=== PATIENT | male | born 1930 | race Caucasian/White ===

== ENCOUNTER 2017-06-05 05:29 | Inpatient (IN) | payer MEDICARE ==
--- NOTE | 2017-05-30 13:50 | HP ---
HISTORY OF PRESENT ILLNESS: Mr. Alvarez is an 87-year-old male who was referred by Dr. Hatfield for e valuation of the left motor strip lesion on MR images. Mr. Alvarez has new onset of right hand weakne ss after a cardiac catheterization about 3 months ago. The deficint has been stable since the kim terization. There is loss of fine motor skill in the hand and lack of sensation in the right smalle st digits. There is no change in sensory. After EMG NCV testing was normal and he was sent for MR imaging and mass lesion was discovered. Because of an awake craniotomy was contemplated, he was sen t to our clinic. There have been no new symptoms. PAST MEDICAL HISTORY: Reflux, high cholesterol, coronary artery disease. ALLERGIES: BRILINTA,TRAMADOL, and TEMAZEPAM. PHYSICAL EXAMINATION: NEUROLOGIC: Cranial Nerves: Visual lackey are full to confrontation. Extraocular muscles move the eyes in all directions, primary gaze without nystagmus. The face is sensate and symmetric. Hearin g is normal to finger rub bilaterally. elevates in the midline palate. The tongue protrudes in the midline. Shoulder shrug and neck turn are strong. Cerebellar exam is no truncal ataxia. Ga it and station are normal. Romberg sign is negative. Motor Exam: Lack of extension of the ring an d smallest finger on the right hand intrinsic including interossei weak on the right. No other face , arm, leg weakness seen. Sensory Exam: No loss of dermatomal, no ulnar sensory sensation. Reflex exam normal and no Babinskis. MRI IMAGING: Shows peripheral enhancing mass with a cystic center in the arm area of the left motor strip without much surrounding edema. MRI/MRA of the brain is at [facility]. ASSESSMENT: Frontal mass lesion. PLAN: Patient travels to [place], [place] of times. I suspect neopl asm, but it could be a parasitic lesion. There is a little chance of parasite, I recommend awake cr aniotomy. Informed consent was given. We discussed the indications, risks, benefits, alternatives, and expected results from surgery. The risks discussed included, but were not limited to infection , CSF leak, brain damage, significant loss of neurologic function, seizures, stroke, dependence of n ormal care, cardiopulmonary complications of anesthesia or . Long-term complications discussed included, but were not limited to recurrent and future surgery. He understands the risk and is marie ling to proceed with the surgery. Patient has been started on Keppra 500 mg p.o. b.i.d. for now. [facility]el church will await evaluation from Dr. Coulter, Infectious Disease before proceeding with surgery.
[2017-06-05] MEDS ORDERED: Sodium Chloride 0.9% 20 ML ONE (06:17)
[2017-06-05] MEDS ORDERED: Thrombin 5000 UNITS/5 ML VIAL ONE (06:17)
[2017-06-05] MEDS ORDERED: Bacitracin Zinc Ointment 30 gm TUBE ONE (06:17)
[2017-06-05] MEDS ORDERED: Lidocaine 1% w/Epinephrine 1:200K 30 ML VIAL ONE ×2 (06:17→07:24)
[2017-06-05] MEDS ORDERED: Dexmedetomidine 200 MCG/2 ML VIAL ONE (06:28)
[2017-06-05] MEDS ORDERED: Propofol 500 MG/50 ML VIAL ONE (06:29)
[2017-06-05] MEDS ORDERED: Fentanyl 100 MCG/2 ML VIAL ONE (06:29)
[2017-06-05] MEDS ORDERED: Midazolam HCl 2 mg/2 ml Vial ONE ×2 (06:29→09:08)
[2017-06-05] MEDS ORDERED: Bupivacaine HCl 0.5%/Epinephrine 1:200,000/PF 30 ml Vial ONE ×2 (07:24→08:20)
[2017-06-05] MEDS ORDERED: Lidocaine Viscous Sol 2% 15 ml UD Cup ONE (07:33)
[2017-06-05] MEDS ORDERED: Ondansetron HCl/PF 4 MG/2 ML Vial ONE (07:42)
[2017-06-05] MEDS ORDERED: Dexamethasone 20 MG/5 ML VIAL ONE (07:42)
[2017-06-05] MEDS ORDERED: Propofol 200 MG/20 ML VIAL ONE (07:42)
[2017-06-05] MEDS ORDERED: Acetaminophen 325 MG TAB PO PRN (11:44)
[2017-06-05] MEDS ORDERED: Ondansetron HCl/PF 4 MG/2 ML Vial IVP PRN ×2 (11:44→13:17)
[2017-06-05] MEDS ORDERED: Morphine Sulfate 2 MG/ML SYRINGE SLOW IVP PRN (11:44)
[2017-06-05] MEDS ORDERED: Acetaminophen/Codeine 30-300mg Tablet PO PRN (11:52)
[2017-06-05] MEDS ORDERED: Promethazine HCl 25 MG/ML VIAL IM PRN (13:17)
[2017-06-05] MEDS ORDERED: Promethazine HCl 25 MG/ML VIAL SLOW IVP PRN (13:17)
--- NOTE | 2017-06-05 13:31 | OP ---
DATE OF PROCEDURE: 06/05/2017 SURGEON: Monse Rowe M.D. JOGGER OPERATOR: Danie Toro PA-C. PREOPERATIVE INDICATION: Make diagnosis, prevent neurological deterioration. PREOPERATIVE DIAGNOSES: Left posterior frontal lesion, likely tumor. POSTOPERATIVE DIAGNOSIS: Left posterior frontal lesion, likely tumor. OPERATIVE PROCEDURE: Stereotactic assisted craniotomy, in an awake state with electrocorticography brain mapping, volumetric tumor resection, operating microscope. PREOPERATIVE MEDICATIONS: Ancef 2 grams IV. DRAIN NUMBER: Zero. DRAIN TYPE: None. PROCEDURE IN DETAIL: The patient was brought to the operating room. IV sedation was administered. The patient was positioned supine with his left shoulder bumped and head was anesthetized and then immobilized in [place] bo headholder and the [place] attachment for the operating table was us ed to stabilize the head. Using the preoperative MRI scan, the Al Detal navigation system and navig ation wand with the surface registration, we created stereotactic navigation space around the edita t's head. We verified our registration using surface landmarks and found it to be quite concordance . We then planned our horseshoe-shaped incision on the left side of the scalp. Under the limbs of the planned incision, we infused local anesthetic. The left scalp was sterilely prepped and draped. The patient was kept awake and was not intubated. We opened our incision with a 10 blade knife an d controlled bleeding with bipolar cautery. We used monopolar cautery to dissect to the periosteal layer and we folded our scalp flap inferiorly and held it in place under a fishhook. We used our Rootless navigation system to recenter our craniotomy flap. We placed 2 bur holes laterally and 1 med ially and fashioned a curvilinear craniotomy with a side cutting bit and a foot plate. We stripped the dura off the undersurface of the bone and controlled bleeding with bipolar cautery and a pledget of Gelfoam. We opened the dura laterally and folded it medially and encountered the brain surface. Immediately visible was a fleshy presentation of the tumor on the surface of the brain and the pre central sulcus. We then began our electrocorticography. The patient was emerging from propofol, be mindi speaking with us. We used electrode strip and a phase shift to localize the central sulcus, the precentral gyrus and the post-central gyrus. On the precentral gyrus the tumor, [facility] an area between the proximal leg and the forearm. Between the proximal leg activation are a and the forearm activation area, the hand was a little bit inferior from the surface presentation of the tumor. We elected to enter the precentral sulcus directly on top of the tumor. We brought jamar dye operating microscope into the field. We gently coagulated the rajesh at our entry point and cut thi s sharply. We continued our dissection circumferentially around the lesion and generated a plane po steriorly along the rajesh of the central sulcus medially and laterally as well as anteriorly in the pr ecentral sulcus. We debulked the center of the tumor and took multiple samples for pathology. We f olded the edges then away from normal brain. As we approached the inferior margin of the tumor part of it feathered posteriorly under the post-central gyrus. We stayed intimately associated with the tumor itself and did not violate as best we could tell any normal appearing white matter. With suc tion and irrigation removed the remainder of the abnormal tissue. Our stereotactic navigation wand was brought into the field. We traced the edges of the resection cavity and they fit nicely with th e contours of the tumor on the preoperative image. We irrigated copiously with bacitracin irrigatio n. We controlled bleeding within the depths of our resection cavity with gentle bipolar cautery. W e stimulated the edges of the cavity and found stimulation the right side of the body. We stimulate d the cortical surface again and repeated exactly with the same thresholds the cortical activation o f leg, arm and hand motor pathways. We lined the resection cavity with Surgicel. We harvested a pe ricranial flap to serve as a new dura. The dura itself was tacked medially over craniotomy bone to hold our Gelfoam in place. There was a small bleeding vein and an arachnoid granulation. We took jamar dye operating microscope out of the field. We reattached the skull flap with plates and screws. We closed the scalp in anatomic layers. We applied a sterile dressing and took the patient back out of [facility] head baggage porter. This was a clean case and no contamination.
[2017-06-05 14:43] VITALS: BMI 23.6
[2017-06-05] MEDS ORDERED: methylPREDNISolone 4 mg Tablet PO SCH (15:00)
[2017-06-05] MEDS: Acetaminophen 325 MG TAB PO SCH ×2 (15:15→20:55)
[2017-06-05] MEDS: Sodium Chloride 0.9% 1,000 ML IV SCH (15:24)
--- NOTE | 2017-06-05 18:09 | CON ---
DATE OF CONSULTATION: 06/05/2017 SERVICE: Pulmonary Medicine. REASON FOR CONSULTATION: ICU patient. HISTORY OF PRESENT ILLNESS: Patient is an 87-year-old white male with past medical history significant for a new onset of right hand and wrist weakness. Ultimately, an MRI demonstrated a left-sided brain lesion. He went for an elective craniotomy with excision of this tumor. The results of these are currently pending. He came back to the ICU extubated. He currently has no complaints of fevers, chills, nausea, vomiting, diarrhea or chest discomfort. He has no difficulty with breathing. He was diagnosed with obstructive sleep apnea a couple of weeks ago and was initiated on noninvasive therapy with CPAP at 5 cm of water, roughly 3 days ago. Otherwise, he has no specific complaints. PAST MEDICAL HISTORY: 1. Gastroesophageal reflux disease. 2. Dyslipidemia. 3. Hypertension. 4. Coronary artery disease. 5. Brain tumor. PAST SURGICAL HISTORY: None. FAMILY HISTORY: Noncontributory. SOCIAL HISTORY: Negative for current alcohol, tobacco or illicit drug use. He does not have an extensive history of smoking. He has no exposure to chemical, asbestos or tuberculosis. ALLERGIES: TEMAZEPAM, CANGRELOR and TRAMADOL. MEDICATIONS: List of his inpatient and outpatient medications were reviewed. No updates were made at this time. REVIEW OF SYSTEMS: General, head, ears, eyes, nose, throat, cardiovascular, respiratory, GI, , musculoskeletal, neurologic and skin is negative except as mentioned in the HPI. PHYSICAL EXAMINATION: VITAL SIGNS: Afebrile, pulse 66, blood pressure 147/61, respirations 17 and saturation 92% on room air. GENERAL: The patient is awake and alert, in no apparent distress. LUNGS: Excellent air entry with no prolonged expiratory phase, wheezing, rhonchi or crackles. HEART: Normal rate and regular. ABDOMEN: Soft, nontender and nondistended. Bowel sounds positive. MUSCULOSKELETAL: No cyanosis or clubbing. There is no pitting in the bilateral lower extremities. NEUROLOGIC: Only focal deficit is right hand and wrist weakness, otherwise nonfocal. LABORATORY DATA: WBC 10.0, hemoglobin 13.5 and platelets 241,000. INR 1.0. Basic metabolic profile is unremarkable. IMAGING DATA: MRA of the neck demonstrates limited exam secondary to motion artifact. There is moderate focal stenosis involving the proximal aspect of the cervical right ICA. 1. MRI brain demonstrates heterogeneously enhancing intraaxial mass and the left frontoparietal convexity. 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 2. The brain demonstrates multifocal atherosclerotic irregularity of the [place] unexpected for the patient's age. 3. CT of the chest demonstrates no CT findings to suggest metastatic disease of the chest, abdomen or pelvis. Degenerative changes of the spine. ASSESSMENT: 1. Brain tumor status post craniotomy and excision of left posterior frontal lesion. 2. Obstructive sleep apnea. PLAN: We will continue supportive care and maintain a good blood pressure control based on neurosurgery's parameters. Some of his home blood pressure medicines will be continued. I will continue to follow along while the patient remains in the ICU, but when he goes to the floor, he will not require a pulmonary opinion. TIAGO
[2017-06-05] MEDS: PROVENTIL INHALER 6.7 G (200 INHALATIONS) INH SCH (18:28)
[2017-06-05] MEDS: methylPREDNISolone 4 mg Tablet PO SCH ×2 (18:48→21:03)
[2017-06-05] MEDS: Atorvastatin Calcium 40 MG TAB PO SCH (20:55)
[2017-06-05] MEDS: Tamsulosin HCl 0.4 MG CAP PO SCH (20:56)
[2017-06-05] MEDS ORDERED: levETIRAcetam 500 MG TAB PO SCH (21:00)
[2017-06-05] MEDS ORDERED: Calcium Carbonate 500 MG ChewTAB PO PRN (22:15)
[2017-06-05] MEDS: Labetalol HCl 100 MG/20 ML VIAL SLOW IVP PRN (23:21)
[2017-06-06] MEDS: Labetalol HCl 100 MG/20 ML VIAL SLOW IVP PRN ×2 (02:27→17:55)
[2017-06-06] MEDS: Sodium Chloride 0.9% 1,000 ML IV SCH (02:30)
[2017-06-06 03:40] LABS: Anion Gap 16 mmol/L (10-20); BUN (Urea Nitrogen) 12 mg/dL (8.4-25.7); Calc. Creatinine Clearance 64 mL/min (70-130); Carbon Dioxide 22 mmol/L (23-31); Chloride 107 mmol/L (98-107); Estimated GFR-MDRD Greater than 90
--- NOTE | 2017-06-06 07:20 | PRG ---
DATE OF SERVICE: 06/06/2017 I saw Mr. Alvarez in his room this morning. He is an 87-year-old male status post awake craniotomy an d tumor resection on the left. This morning he has some uncomfortable feeling in his right wrist. Otherwise, he is able to move his bilateral lower extremities with 5/5 strength. He has some 3/5 st rength weakness on the right upper extremity which has not changed since before his craniotomy. The re are no new neurologic deficits on exam this morning. Overnight he had a focal twitching on his r ight upper extremity for about 15 seconds and he was given extra dose of Keppra. His blood pressure and vital signs have been stable overnight. The patient is awake this morning. His cranial nerves are intact and his speech is fluent. He is able to answer my questions appropriately. Today, he c an start to walk with physical therapy and likely be transferred to the floor. If he is doing well throughout the day in the evening we will look for discharge possibly tomorrow. If there are any further questions, please feel free to contact Neurosurgery.
[2017-06-06] MEDS: methylPREDNISolone 4 mg Tablet PO SCH ×4 (07:45→17:45)
[2017-06-06] MEDS: Acetaminophen 325 MG TAB PO SCH ×3 (07:45→21:10)
[2017-06-06] MEDS: Loratadine 10 MG TAB PO SCH (07:46)
[2017-06-06] MEDS: PROVENTIL INHALER 6.7 G (200 INHALATIONS) INH SCH ×2 (07:59→19:31)
[2017-06-06] MEDS: Tamsulosin HCl 0.4 MG CAP PO SCH ×2 (10:05→20:57)
--- NOTE | 2017-06-06 10:07 | PRG ---
DATE OF SERVICE: 06/06/2017 NEUROSURGERY PROGRESS NOTE Pacheco Alvarez had a very good evening and night in the ICU. He is postoperative day #1 from an awake craniotomy for tumor resection within the left side of motor strength. He had a couple of focal sei zures in the shoulder girdle that did not generalize at all. We increased his Keppra dose. Otherwi se, he has been fine. His vitals are stable. Incision looks good. He has no weaker now than he wa s before surgery. He still has some hand weakness, but I do not find any new shoulder or leg weakne ss. His face is symmetric. Our plan is to transfer Mr. Alvarez to the floor care. He had been eating and drinking, and stopped h is IV fluids. We will get an MRI scan as a postop followup to see extended tumor resection and held with radiation planning. Pathologists have informed me that this looks like a primary brain tumor; it is a high grade with a final diagnosis will be ready in about 5 days.
--- NOTE | 2017-06-06 13:22 | MRI ---
EXAM: BRAIN MRI WITH AND WITHOUT CONTRAST: COMPARISON: 05/07/17. HISTORY: Tumor resection. Followup examination. TECHNIQUE: A brain MRI is performed with and without intravenous Gadolinium administration. Multisequential, m ultiplanar imaging is performed. FINDINGS: Hypointensity on the axial gradient echo sequence involving the left cerebrum likely due to postsurg ical hemorrhage. There is evidence of extraaxial fluid as well as extraaxial air. Central arterial flow voids are maintained. Absent restricted diffusion. There is enhancement involving the dura, likely postsurgical. There is intrinsic T1 hyperintensity and T2 hyperintensity at the surgical cavity site. Increased hyperintensity on the postcontrast ava ge is presumed to be due to blood products. Subtle areas of residual enhancement could easily be ob scured. There is no midline shift. Basilar cisterns are patent. The right cerebrum demonstrates preservati on of cortical acevedo-white matter differentiation. The aforementioned surgical cavity measures 2.4 x 2.3 cm. IMPRESSION: 1. Postsurgical changes in the left frontoparietal region. 2. Dural enhancement, presumed to be postoperative. 3. Postoperative extraaxial fluid and pneumocephalus. Results of the study discussed with Dr. Jae Frank's PA, 06/06/17 at 11:18 a.m. CODE CR POS: LEIF
[2017-06-06] MEDS: Acetaminophen/Codeine 30-300mg Tablet PO PRN ×2 (13:26→20:57)
--- NOTE | 2017-06-06 15:56 | PRG ---
DATE OF SERVICE: 06/06/2017 SERVICE: Pulmonary Medicine. INTERVAL HISTORY: The patient is doing really well from a cardiovascular and respiratory standpoint . He denies any chest pain, shortness of breath, nausea, vomiting or diarrhea. He is tolerating p. o. for the most part. He has had some word finding difficulty this morning that being said. He has a little increasing weakness in the right arm. Outside of that, things remain stable. PHYSICAL EXAMINATION: VITAL SIGNS: Afebrile, pulse 58, blood pressure 106/65, respirations 22, saturation 98% on room air . GENERAL: The patient is awake and alert, in no apparent distress. LUNGS: Excellent air entry with no prolonged expiratory phase, wheezing, rhonchi or crackles. HEART: Normal rate, regular. ABDOMEN: Soft, nontender, nondistended. Bowel sounds positive. MUSCULOSKELETAL: No cyanosis or clubbing. No pitting in the bilateral lower extremities. NEUROLOGIC: Right upper extremity demonstrates some weakness. He has a little word finding difficu lty this morning, but otherwise, he is nonfocal. LABORATORY DATA: Basic metabolic profile is unremarkable, but for a bicarbonate that is minimally r educed at 22. Potassium 3.7. IMAGING: MRI of the brain demonstrates postsurgical changes in the left frontoparietal region with a dural enhancement presumed to be postoperative. There is some pneumocephalus and extraaxial fluid , which is consistent with his postoperative state. ASSESSMENT: 1. Brain tumor, status post craniotomy with excision of left posterior frontal lesion. 2. Obstructive sleep apnea. PLAN: We will continue supportive care. We will get the patient into a chair 3 times daily. Occup ational therapy will be involved to help with the patient's dexterity of the right hand. Pulmonary Care will continue to follow as long as the patient remains in this part of the hospital; however, w hen he goes to the floor, we will sign off.
[2017-06-06] MEDS: Atorvastatin Calcium 40 MG TAB PO SCH (20:57)
[2017-06-06] MEDS ORDERED: methylPREDNISolone 4 mg Tablet PO SCH (21:00)
[2017-06-07] MEDS: Loratadine 10 MG TAB PO SCH (08:34)
[2017-06-07] MEDS: Acetaminophen 325 MG TAB PO SCH ×3 (08:34→21:42)
[2017-06-07] MEDS: Tamsulosin HCl 0.4 MG CAP PO SCH ×2 (08:34→21:42)
[2017-06-07] MEDS: methylPREDNISolone 4 mg Tablet PO SCH ×4 (08:34→21:42)
[2017-06-07] MEDS: PROVENTIL INHALER 6.7 G (200 INHALATIONS) INH SCH ×2 (08:48→22:17)
[2017-06-07] MEDS ORDERED: Dexamethasone 10 MG in Sodium Chloride 0.9% 50 ML IVPB SCH (11:00)
--- NOTE | 2017-06-07 12:23 | PRG ---
DATE OF SERVICE: 06/07/2017 SUBJECTIVE: When I see Mr. Alvarez this morning 2 days after his craniotomy for resection of a motor strip lesion. The postoperative MRI scan was done yesterday and has a good result. The T1 hyperint ensity in the area of the surgical resection indicating some blood products. There is no extra enha ncement around it, after careful review of the 2 sets of images. I am happy with the radiographic r esults. Mr. Alvarez this morning has some difficulty with expressive language function, cannot quite get his w ords out. I noticed he has some focal seizures of the right upper extremity yesterday, we increased the Keppra dose. I am going to increase Decadron today and make sure the Keppra is in a therapeuti c range and offered to have his CPAP machine to deliver oxygen better and more efficiently to the br ain in hopes of alleviating some of the new neurological dysfunction that he has had. I think this would be entirely temporary. We will watch him until it resolves.
[2017-06-07] MEDS: Dexamethasone 4 MG in Sodium Chloride 0.9% 50 ML IVPB SCH ×2 (15:32→21:43)
--- NOTE | 2017-06-07 15:32 | PRG ---
DATE OF SERVICE: 06/07/2017 SUBJECTIVE: Mr. Alvarez is an 87-year-old male I saw in his room this morning. Overnight, there have been no acute events. He does have some aphasia that seems to be new. He is having trouble produc ing words that he wants to say. On his right upper extremity, he is unable to move his arm. He has good strength in his left upper extremity and bilateral lower extremities. His pulses are equal an d symmetric in the upper and lower extremities bilaterally. This morning, we will continue to have him work with physical therapy throughout the day today and continue to monitor his neuro status for any neuro status changes. If his aphasia does not improve by tomorrow, we can consult speech thera py and possibly some rehab for the weakness in the right upper extremity. PHYSICAL EXAMINATION: His vital signs overnight have been stable; mildly hypertensive at 155/71. H is incision from the craniotomy is healing well and is clean, dry, and intact with mary ann in subcut aneous stitches. If there are any further questions, please feel free to contact Neurosurgery.
[2017-06-07] MEDS: Atorvastatin Calcium 40 MG TAB PO SCH (21:42)
[2017-06-08] MEDS: Dexamethasone 4 MG in Sodium Chloride 0.9% 50 ML IVPB SCH ×4 (03:50→22:45)
[2017-06-08] MEDS: PROVENTIL INHALER 6.7 G (200 INHALATIONS) INH SCH ×2 (08:30→19:50)
[2017-06-08] MEDS: Loratadine 10 MG TAB PO SCH (08:56)
[2017-06-08] MEDS: Tamsulosin HCl 0.4 MG CAP PO SCH ×2 (08:56→21:14)
[2017-06-08] MEDS: Acetaminophen 325 MG TAB PO SCH ×3 (08:56→21:14)
[2017-06-08] MEDS: methylPREDNISolone 4 mg Tablet PO SCH ×3 (08:57→17:07)
[2017-06-08] MEDS: Labetalol HCl 100 MG/20 ML VIAL SLOW IVP PRN (08:58)
--- NOTE | 2017-06-08 09:46 | PRG ---
DATE OF SERVICE: 06/08/2017 SUBJECTIVE: Mr. Alvarez is an 87-year-old male who is status post craniotomy and tumor resection. Ye sterday, he has had a little bit of expressive aphasia. He is able to wear his CPAP overnight and h is expressive aphasia is slightly better this morning. He is able to talk much more frequently. Th ere are no new neurologic deficits on exam. He does have his right upper extremity that is weak; ho wever, he feels like the strength is coming back into his hand in the right upper extremity. Howeve r, he is unable to lift it against gravity yet. His vital signs have been stable overnight. We marie l continue to watch Mr. Alvarez throughout the day today. Yesterday, he was very unstable when workin g with physical therapy. For today, we will continue to work with physical therapy and some walk pr actice on improving his balance. If there are any further questions, please feel free to contact Ne urosurgery.
--- NOTE | 2017-06-08 17:06 | PRG ---
DATE OF SERVICE: 06/08/2017 SUBJECTIVE: Mr. Pacheco Alvarez is 3 days out from awake craniotomy for brain tumor resection. Yesterd ay morning, he has some dysphasia and right-sided weakness that were worsen over right after his ope ration. He improved by yesterday evening and is even better this morning. He is awake and answerin g questions appropriately in spite of just being woken up out of sleep. Mr. Alvarez is still not back to his preoperative baseline yet, but he is markedly better. His vitals this morning look good, we will continue on Decadron. His Keppra level was in the therapeutic range. I do not think this is a stroke given the improving waxing or waning nature of the symptoms, I think with more time and mor e resolution of the swelling, that his brain function will return.
[2017-06-08] MEDS: Atorvastatin Calcium 40 MG TAB PO SCH (21:14)
[2017-06-09] MEDS: Dexamethasone 4 MG in Sodium Chloride 0.9% 50 ML IVPB SCH (04:35)
[2017-06-09] MEDS: PROVENTIL INHALER 6.7 G (200 INHALATIONS) INH SCH ×2 (07:04→20:01)
--- NOTE | 2017-06-09 08:36 | PRG ---
DATE OF SERVICE: 06/09/2017 Mr. Alvarez is now 4 days out from awake craniotomy for resection of a motor strip tumor on the left s pam. Over the weekend on Friday morning he had significant expressive dysphasia that was clearing on Friday, but not gone. I am seeing him this morning and his speech is even more fluent than it w as yesterday. He is getting his exact thoughts out. He expresses some frustration with the movemen t of his right arm. He notices that the right arm does not feel like his own and that due to the la ck of sensation it seems a little bit foreign to him. He does have an IV in the right arm. He has not been out of bed yesterday and his Barbosa is still in. My plan for today is to move the IV from the right hand to the left, to see if we can make his arm f eels more like his own. That IV will be used only in case of seizure where we need to stop the dedrick odiazepine. I think the risk is low, but it would be good to have the IV at least while he is in [facility]. We will take the Barbosa catheter out which will encouraged motion. He is going to ask n ursing or physical therapy to get him out of bed. I would like to have them mobilize him as much as possible. I am going to taper off the steroids slowly. We will go down to 3 mg of Decadron 4 time s a day. I think Mr. Alvarez's speech is remarkably better than it was Friday. He is now able to e xpress his frustration and he appreciates the change in sensation which actually is an improvement. He was mostly ignoring his right hand prior.
[2017-06-09] MEDS: Dexamethasone 1 MG TAB PO SCH ×4 (08:42→20:57)
[2017-06-09] MEDS: Docusate 100 MG CAP PO PRN ×2 (08:43→17:08)
[2017-06-09] MEDS: Acetaminophen 325 MG TAB PO SCH ×3 (08:43→20:58)
[2017-06-09] MEDS: Tamsulosin HCl 0.4 MG CAP PO SCH ×2 (08:43→20:57)
[2017-06-09] MEDS: methylPREDNISolone 4 mg Tablet PO SCH ×2 (08:44→17:00)
[2017-06-09] MEDS: Loratadine 10 MG TAB PO SCH (08:44)
--- NOTE | 2017-06-09 08:58 | PRG ---
DATE OF SERVICE: 06/09/2017 Mr. Alvarez is an 87-year-old male who I saw him in his room this morning. He is status post cranioto my and tumor resection. Yesterday he had a slight bout of aphasia that is starting to resolve. His vital signs have been stable overnight and he is comfortably lying in bed this morning. His incisi on is clean, dry and intact with mary ann. There are no new neurologic deficits on exam this morning . He responds to my questions appropriately and his cranial nerves are intact. He is complaining o f some constipation this morning in which we will give him Colace. We have also decreased his Decad staci to 3 times a day instead of 4. We encouraged him to work aggressively with physical therapy tod ay and ambulate as much as possible. If there are any further questions, please feel free to contact Neurosurgery.
[2017-06-09] MEDS: Labetalol HCl 100 MG/20 ML VIAL SLOW IVP PRN (20:58)
[2017-06-09] MEDS: Atorvastatin Calcium 40 MG TAB PO SCH (20:58)
[2017-06-10] MEDS: PROVENTIL INHALER 6.7 G (200 INHALATIONS) INH SCH ×2 (06:28→19:50)
--- NOTE | 2017-06-10 07:13 | HP ---
DATE OF SERVICE: 06/10/2017 I saw Mr. Alvarez in his hospital bed this morning. He is 5 days out from an awake craniotomy for res ection of a motor strip lesion. His right hand is better this morning. Right on waking he moves an d he waves to me with the hand. He can extend the elbow, he is speaking clearly. His speech is nery ost all the way back to normal and he did well walking with physical therapy yesterday. If Mr. Alvarez continues to improve at this rate he can be discharged home as early as this afternoon. We will see how he does with therapy this morning.
[2017-06-10] MEDS ORDERED: methylPREDNISolone 4 mg Tablet PO SCH (08:00)
[2017-06-10] MEDS: Tamsulosin HCl 0.4 MG CAP PO SCH ×2 (10:08→21:39)
[2017-06-10] MEDS: Dexamethasone 1 MG TAB PO SCH ×4 (10:08→22:25)
[2017-06-10] MEDS: Acetaminophen 325 MG TAB PO SCH ×3 (10:09→21:38)
[2017-06-10] MEDS: Loratadine 10 MG TAB PO SCH (10:09)
--- NOTE | 2017-06-10 10:38 | PRG ---
DATE OF SERVICE: 06/10/2017 SUBJECTIVE: Mr. Alvarez is an 87-year-old male who I saw in his room this morning. He did well overn ight and there have been no acute events. His vital signs are been stable overnight. I saw in his room this morning. He is alert and oriented x3, answers my questions appropriately. There are no n ew neurologic deficits on exam this morning. He still has significant right arm weakness. His expr essive aphasia is getting better. It will be important for him to work with physical therapy as muc h as possible today and ambulate as much as possible. The family is concerned that he may need reha b placement after his hospitalization. I will discuss this with Dr. Rowe, and if it is indicat ed, I will order case management to start looking rehab places. If there are any further questions, please feel free to contact Neurosurgery.
[2017-06-10] MEDS ORDERED: levETIRAcetam 500 MG TAB PO SCH (12:15)
[2017-06-10] MEDS: Atorvastatin Calcium 40 MG TAB PO SCH (21:39)
[2017-06-10] MEDS: levETIRAcetam 500 MG TAB PO SCH (21:39)
[2017-06-11 06:04] VITALS: TEMP 97.6
[2017-06-11] MEDS: PROVENTIL INHALER 6.7 G (200 INHALATIONS) INH SCH (07:24)
[2017-06-11 08:03] VITALS: BP 188/80
[2017-06-11] MEDS: Dexamethasone 1 MG TAB PO SCH ×2 (08:29→11:12)
[2017-06-11] MEDS: levETIRAcetam 500 MG TAB PO SCH (08:29)
[2017-06-11] MEDS: Acetaminophen 325 MG TAB PO SCH (08:30)
[2017-06-11] MEDS: Tamsulosin HCl 0.4 MG CAP PO SCH (08:31)
[2017-06-11] MEDS: Loratadine 10 MG TAB PO SCH (08:31)
--- NOTE | 2017-06-11 12:06 | PRG ---
DATE OF SERVICE: 06/11/2017 SUBJECTIVE: Mr. Alvarez is wide awake this morning when I entered his room. His speech is more fluen t. There is no hesitancy at all. I do not think he has any dysphagia anymore. The right hand is s till weak. He was able to ambulate yesterday, however. Mr. Alvarez is anxious to go to rehabilitation. I think it is reasonable to do so. He asked about pr ednisone for his low back pain, but as we taper off Decadron, I do not think there is a need for pre dnisone currently. If his back pain returns, we can always restart in the future. Mr. Alvarez asks about his Macrobid prescription and he should be back on all of his home medications. We will continue Keppra while he is in rehabilitation. We will see Mr. Alvarez for staple removal in about 2 weeks after his operation.
--- NOTE | 2017-06-12 14:38 | DIS ---
DATE OF ADMISSION: 06/05/2017 DATE OF DISCHARGE: 06/11/2017 ADMISSION DIAGNOSIS: Left posterior frontal lesion, likely tumor. 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 DISCHARGE CONDITION: The patient is stable. He is ambulating, has weakness in his right upper arm. CONSULTATIONS: Physical therapy, case management, Pulmonary, Dr. Rick Sousa. PROCEDURES: Stereotactic-assisted craniotomy in an awake state with electrocardiograph brain imagin g, volumetric tumor resection, operating microscope. IMAGING: All images were taken intraoperatively. HISTORY OF PRESENT ILLNESS: Mr. Alvarez is an 87-year-old male, who presented with evaluation for a l eft motor strip lesion on MR images. He has new onset of right-hand weakness after cardiac catheter ization about 3 months ago. There was a loss of fine motor skills in the hand and lack of sensation in the right smallest digits. There are no changes in sensory. He would like to pursue neurologic surgery for resection of this brain mass. HOSPITAL COURSE: Over his hospital course, there were no acute events. The first night after the o peration, he developed a stress of aphasia, which was pretty well corrected by the time he was disch arged from the hospital. He was placed on CPAP and the expressive aphasia resolved. All images wer e taken intraoperatively. DISCHARGE PHYSICAL EXAMINATION: HEENT: Normocephalic, atraumatic. Hearing intact. Moist mucous membranes. Trachea is midline. P atient has a horseshoe-shaped incision in which he has held together with mary ann, is clean, dry, an d intact. No erythematous noted. EYES: Pupils are equal and reactive to light. Extraocular muscles are intact. Sclerae is white, n onicteric. CARDIOVASCULAR: The patient has regular rate and rhythm. Normal S1, S2 heart sounds. No distal cy anosis or clubbing. RESPIRATORY: The patient has bilateral symmetric chest rise. The patient appears to be no shortnes s breath. Pulses are +2 and equal and symmetric in the bilateral upper and lower extremities. MUSCULOSKELETAL: The patient has 3/5 weakness in the right upper extremity, 5/5 strength in the lef t upper extremity and bilateral lower extremities. Sensory is intact, a small amount of numbness an d tingling to the 3 lateral digits on the right upper extremity. NEUROLOGIC: Cranial nerves II through XII are grossly intact. Speech is fluent. He answers my que stions appropriately. There is no lateralizing motion on exam. VITAL SIGNS: Patient's weight on discharge was 151 pounds. He is 5 foot 7 inches. ACTIVITY: The patient have a regular activity when discharged. DIET: Patient can have a regular diet. HOME MEDICATIONS: Include: 1. Keppra 500 mg p.o. b.i.d. 2. Atorvastatin calcium 80 mg p.o. at bedtime. 3. Nitrofurantoin 100 mg p.o. at bedtime. 4. Loratadine 100 mg p.o. daily. 5. CoQ10 200 mg p.o. daily. 6. Albuterol sulfate HFA 2 puffs inhaled b.i.d. 7. Vitamin E, vitamin K 400 units p.o. daily. 8. Vitamin B complex 100 mg p.o. daily. 9. Cholecalciferol 5000 units p.o. daily. 10. Pantoprazole sodium 40 mg p.o. q.a.m. 11. Tamsulosin hydrochloride 0.4 mg p.o. b.i.d. 12. Acetaminophen 650 mg p.o. t.i.d. 13. Dexamethasone 3 mg p.o. q.i.d. with meals taper.
== END 2017-06-11 11:15 | DRG 26 ==
LOC: SURG A 05:29 → EDSTATUS 09:51 → CCU 13:26 → SURG A 06-06 17:14
PROVIDERS: ADMIT Neurological Surgery; ATTEND Neurological Surgery
PROC: 00B00ZZ Excision of Brain, Open Approach (ICD-10-PCS; principal; 2017-06-05)
PROC: 5A09357 Assistance with Respiratory Ventilation, Less than 24 Consecutive Hours, Continuous Positive Airway Pressure (ICD-10-PCS; 2017-06-05)
DX: C71.9 Malignant neoplasm of brain, unspecified (principal); R47.01 Aphasia; I35.0 Nonrheumatic aortic (valve) stenosis; I34.0 Nonrheumatic mitral (valve) insufficiency; Z88.8 Allergy status to other drugs, medicaments and biological substances; K59.00 Constipation, unspecified; R47.02 Dysphasia; I10 Essential (primary) hypertension; G47.33 Obstructive sleep apnea (adult) (pediatric); K21.9 Gastro-esophageal reflux disease without esophagitis; E78.5 Hyperlipidemia, unspecified; I25.10 Atherosclerotic heart disease of native coronary artery without angina pectoris; Z95.5 Presence of coronary angioplasty implant and graft; I73.9 Peripheral vascular disease, unspecified; Z79.82 Long term (current) use of aspirin; Z79.01 Long term (current) use of anticoagulants
CPT/HCPCS: 36415; 36416; 70553; 80048; 80177; 85027; 85610; 85730; 88307; 88312; 88325; 88331; 88334; 88341; 88342; A4216; C1713; C1769; G8978-GP-CL; G8979-GP-CI; G8987-GO-CL; G8988-GO-CJ; J0131; J0360; J0670; J1100; J1953; J2250; J2405; J2704; J3010; J3490; J7050; J8540

== ENCOUNTER 2017-10-08 11:52 | Inpatient (IN) | payer MEDICARE ==
[2017-10-08 12:27] LABS: #Eosinphils 0.1 thou/uL (0.0-0.7); #Lymphocytes 1.2 thou/uL (1.20-3.40); #Monocytes 0.6 thou/uL (0.11-0.59); #Neutrophils 5.6 thou/uL (1.40-6.50); %Basophils 0.4 % (0.0-1.0); %Eosinophils 1.5 % (0.0-10.0); %Monocytes 7.9 % (0.0-10.0); %Neutrophils 74.2 % (42.0-75.0); Hemoglobin 11.7 g/dL (14.0-18.0); Mean Corpuscular HGB CONC 30.7 g/dL (32.0-36.0); Mean Corpuscular Hemoglobin 29.2 pg (27.0-31.0); Mean Corpuscular Volume 95.3 fl (80.0-94.0); Mean Platelet Volume 6.2 fL (7.4-10.4); Platelet Count 430 thou/uL (130-400); RBC Distribution Width 13.3 % (11.5-14.5); White Blood Cell (WBC) Count 7.6 thou/uL (4.8-10.8)
[2017-10-08 12:48] LABS: ALT (SGPT) 9 U/L (8-55); AST (SGOT) 17 U/L (5-34); Albumin 3.3 g/dL (3.4-4.8); Alkaline Phosphatase 90 U/L (40-150); Anion Gap 13 mmol/L (10-20); BUN (Urea Nitrogen) 6 mg/dL (8.4-25.7); Bilirubin, Total 0.4 mg/dL (0.2-1.2); Calc. Creatinine Clearance 0 mL/min (70-130); Calcium 9.6 mg/dL (7.8-10.44); Carbon Dioxide 27 mmol/L (23-31); Chloride 103 mmol/L (98-107); Estimated GFR-MDRD Greater than 90; Globulin 4.1 g/dL (2.4-3.5); Glucose 84 mg/dL (83-110); Potassium 4.2 mmol/L (3.5-5.1); Protein, Total 7.4 g/dL (5.8-8.1); Sodium 139 mmol/L (136-145)
[2017-10-08 12:54] LABS: CKMB 1.2 ng/mL (0-6.6); Troponin I 0.023 ng/mL (< 0.028)
--- NOTE | 2017-10-08 13:04 | RAD ---
CHEST ONE VIEW: HISTORY: Emergency exam. Seizures. COMPARISON: Chest radiograph from 2002. FINDINGS: The heart size is at the upper limits of normal. There is linear opacity at the left lung base. Den se calcification of the aorta. There is what appears to be scarring along the right minor fissure. IMPRESSION: Linear opacity in the left lung base, along with mild blunting of the left lateral costophrenic sulcu s may reflect scarring versus early infiltrate. POS: [facility]
--- NOTE | 2017-10-08 13:41 | CT ---
CT HEAD NONCONTRAST: HISTORY: Seizure. Brain tumor. Fall. COMPARISON: 07/21/2017 FINDINGS: There is no evidence of acute intracranial hemorrhage. Centered at the left frontal acevedo-white junct ion, a very large, heterogeneous, mixed density mass now measures up to 4.8 cm in length x 3.8 cm in width and is surrounded by vasogenic edema that has increased since the prior CT. It is at the site of prior surgery. At the superior medial margin is a 1.6 cm cystic component. There is effacement o f the adjacent sulci. The septum pellucidum remains midline. Diffuse cortical atrophy is apparent. The visualized paranas al sinuses remain well aerated. Scalp swelling overlies the right frontotemporal calvarium. IMPRESSION: Enlarging heterogeneous left frontal mass with surrounding vasogenic edema. No hemorrhage is evident . Findings were called to Dr. Caldera in the emergency department at 1318 hours. CODE CR POS: [facility]
[2017-10-08] MEDS ORDERED: Dexamethasone 10 MG/ML VIAL ONE (14:24)
[2017-10-08] MEDS ORDERED: Ondansetron ODT 4 MG TAB PO PRN (14:43)
[2017-10-08] MEDS ORDERED: Acetaminophen 325 MG TAB PO PRN (14:43)
[2017-10-08] MEDS ORDERED: Mag-Al 1200 mg/1200 mg/30 ML UDCUP PO PRN (16:54)
[2017-10-08] MEDS ORDERED: cloNIDine 0.1 MG TAB PO PRN (16:54)
[2017-10-08 18:53] VITALS: BMI 19.3
[2017-10-08] MEDS: Heparin 5,000 UNITS/ML VIAL SC SCH ×2 (19:03→22:07)
--- NOTE | 2017-10-08 19:27 | HP ---
PRESENTING COMPLAINT: Seizure. HISTORY OF PRESENT ILLNESS: This is an 87-year-old male with a past medical history of CVA, hyperlip idemia, hypertension, CAD status post stents in 01/2017 and bypass in 1996, who presents to the emerg ency room after a seizure episode resulted in a fall. He has a history of brain tumor and had brain surgery in 12/2016 after he was seen to have frontal lobe mass by Dr. Rowe. He is currently at the rehab facility and for the past few days, he has had more difficulty in ambulating (he has residu al right hemiparesis) and has been falling more frequently. Two days ago, he had seizure episodes wh ich consisted of facial twitching, lasting for a few seconds and resolving spontaneously. There were no tonic clonic seizures or loss of consciousness. His reports he had bowel incontinent today. There is no history of fevers or chills. No chest pain or shortness of breath. He has no other sy mptoms. PAST MEDICAL HISTORY: As above. PAST SURGICAL HISTORY: Back surgery in 2008. ALLERGIES: TEMAZEPAM, TICAGRELOR, TRAMADOL. FAMILY HISTORY: Noncontributory. SOCIAL HISTORY: He denies smoking cigarettes or drinking alcohol. REVIEW OF SYSTEMS: HEENT: Per HPI. RESPIRATORY: Denies shortness of breath, cough, congestion. CARDIOVASCULAR: Denies chest pain, palpitations, PND, or orthopnea. ABDOMEN: Negative. MUSCULOSKELETAL: Negative. SKIN: Denies rashes or ulcers. HEMATOLOGY: Negative. IMMUNOLOGY: Negative. NEUROLOGY: Positive for seizures. See HPI for details. PSYCHIATRY: Negative. PHYSICAL EXAMINATION: VITAL SIGNS: Stable in the emergency room. Not requiring supplemental oxygen. HEENT: Not in acute distress, positive contusion with swelling in the right forehead. RESPIRATORY: Chest clear to auscultation bilaterally. No wheezes or rales. CARDIOVASCULAR: S1 and S2 only. No murmurs, rubs, or gallops. ABDOMEN: Bowel sounds positive. No tenderness. GENITOURINARY: Deferred. NEUROLOGICAL: Residual right hemiparesis. Strength 1/5 in right extremities; 4/5 left extremities. SKIN: No rashes. LABORATORY DATA: CBC with mild anemia. CMP largely unremarkable. Initial troponin 0.023, prolactin 4.25 and TSH of 1.69. Brain CT: Enlarged and heterogeneous left frontal mass with surrounding vaso genic edema. No hemorrhage evident. Chest x-ray: Linear opacity in the left lung base, along with mild blunting of the left lateral cost ophrenic sulcus may reflect scarring versus early infiltrates. ASSESSMENT AND PLAN: 1. Seizures: Likely secondary to mass effect from mass as seen on the CT brain. A. We will place the patient on telemetry monitoring, consult Neurology, IV lorazepam p.r.n. for sei zures. B. Regular neuro checks. C. The patient also has a history of seizures and takes Keppra 1000 mg b.i.d. and Depakote 500 mg b. i.d., which we will continue. 2. Cerebrovascular accident with residual right hemiparesis. The patient seems to be at his baselin e. We will continue aspirin and atorvastatin. We will also get PT/OT evaluation. 3. Hypertension: Currently well controlled. We will continue his home regimen of clonidine. 4. Coronary artery disease, status post stent and bypass. A. Stable, chest pain free. Continue aspirin and statins. 5. History of craniotomy (06/05/2017) for left posterior frontal lesion: Pathology then showed exte nsive necrosis and infiltrates. Continue management as above. 6. deep venous thrombosis prophylaxis. 7. Daily labs. 8. Follow up Neurology and Neurosurgery recommendations.
[2017-10-08] MEDS: PROVENTIL INHALER 6.7 G (200 INHALATIONS) INH SCH (19:47)
[2017-10-08] MEDS: Divalproex Sodium DR 500 MG TAB PO SCH (22:08)
[2017-10-08] MEDS: levETIRAcetam 500 MG TAB PO SCH (22:08)
[2017-10-08] MEDS: Dexamethasone 4 mg/ml Vial SLOW IVP SCH (22:13)
[2017-10-09] MEDS: Dexamethasone 4 mg/ml Vial SLOW IVP SCH (02:57)
[2017-10-09] MEDS ORDERED: Potassium Chloride 20 MEQ TAB PO SCH (06:30)
--- NOTE | 2017-10-09 08:31 | CON ---
DATE OF CONSULTATION: 10/09/2017 HISTORY OF PRESENT ILLNESS: Mr. Alvarez is an 87-year-old male who presented yesterday afternoon with seizures on the right, facial twitching. He has been in [facility] and came in yesterday after tapia ving frequent falls. He has had tremor in the face and the patient's family is concerned that they a re facial seizures. He has had focal seizures since an awake craniotomy in the left frontal region t hat was performed at [facility] in 05/2017 for a lesion removal. Since that time the patien jamar has right-sided weakness. Neurosurgery was consulted because of the history of Mr. Alvarez after a C T of the brain was done that showed an enlarging mass in the right frontal region in the same locatio n as his previous mass before it was resected. There is also associated edema around the mass that c ould be responsible for the symptoms. REVIEW OF SYSTEMS: The patient reports right-sided facial twitching, focal seizures, right-sided def icits at baseline in the upper extremity. In the right upper extremity he has 2/5 weakness. He also has 3/5 weakness in the right lower extremity. All other review of systems are negative unless stated in the above HPI. PAST MEDICAL HISTORY: 1. Myocardial infarction. 2. Gastrointestinal disease 3. Gastroesophageal reflux disease. 4. Genitourinary history, urinary tract infection. 5. Hyperlipidemia. 6. High cholesterol. 7. Neurologic disease. 8. Hemorrhagic cerebrovascular accident. 9. Left frontal lobe lesion. PAST SURGICAL HISTORY: 1. Includes brain surgery on the left frontal lobe on 06/05/2017. 2. Cardiac stents x1. 3. Back. 4. History of coronary artery bypass graft. 5. Craniotomy. 6. Tonsillectomy. PSYCHIATRIC HISTORY: No history of suicidal ideations. No history of homicidal ideations. SOCIAL HISTORY: The patient denies alcohol use, denies drug use. Denies any smoking history. The p atient drinks socially. ALLERGIES: BRILINTA, TEMAZEPAM, TICAGRELOR, TRAMADOL. CURRENT MEDICATIONS: 1. Keppra 1000 mg oral. 2. Potassium 75 mg oral. 3. 400 mg oral. 4. Plavix 75 mg oral. 5. Flonase 15 mcg nasal. 6. Pantoprazole 40 mg. 7. Finasteride 5 mg oral. 8. Depakote delayed release 500 mg oral. 9. Cipro 250 mg oral. 10. Macrobid 100 mg oral. 11. Aspirin 81 mg oral. 12. Cetirizine 10 mg oral. 13. Lipitor 80 mg oral. PHYSICAL EXAMINATION: VITAL SIGNS: Blood pressure 106/83, pulse 77, respirations 20, temperature 97.9, 94% on room air. HEENT: Findings of right temporal hematoma and abrasion. Trachea is midline. EYES: Pupils are equal and reactive to light. Extraocular muscles are intact. Sclerae is white, no nicteric. NECK: Trachea is midline. There is no tenderness to palpation midline cervical spine. RESPIRATORY: The patient has bilateral symmetric chest rise. Appears to have no shortness of breath . CARDIOVASCULAR: The patient has regular rate and rhythm. He has a crescendo systolic murmur. ABDOMEN: No percussion. Normal abdominal exam. Abdomen is nontender. EXTREMITIES: Lower extremity, patient has 3/5 weakness in the right lower extremity compared to the left. Pulses are +2 bilaterally. Upper extremity, the patient has 2/5 strength in the right upper e xtremity compared to the left upper extremity. Pulses are +2 in the brachial and radial artery. NEUROLOGIC: Cranial nerves II-XII are grossly intact. Speech is fluent. He answers my questions ap propriately. There is focal weakness in the right upper and lower extremity. Sensation is intact in the right upper and lower extremity. SKIN: The skin is warm, dry. No rash. PSYCHIATRIC: Normal affect, recent memory is normal. RADIOLOGIC: Interpretation CT head shows a tumor left temporal region that has is increasing in size with associated vasogenic edema. IMPRESSION: Mr. Pacheco Alvarez is an 87-year-old male. He presents with the above stated past medical history and craniotomy with tumor resection in the left frontal region in 05/2017. PLAN: Dr. Rowe and I talked to the family. We will order an MRI to get a better look at the tu mor and its characteristics. If there are any further questions at this time please feel free to contact Neurosurgery.
[2017-10-09] MEDS ORDERED: Prevnar 13-Val Conj/PF 0.5 ML SYRINGE IM ONE (09:00)
--- NOTE | 2017-10-09 09:04 | PRG ---
DATE OF SERVICE: 10/09/2017 I personally interviewed and examined the patient and agree with documentation of Danie Toro PA-C, d ated 10/09/2017. Briefly, Pacheco Alvarez returned to our [facility] yesterday with simple partial seizures that are proving difficult to control. These include facial twitching and forced he ad turn to the right. He remains conscious during the event and continues to talk. I witnessed one on my examination. CT examination of the brain yesterday showed an increase in the mass effect of th e lesion underlying the motor strip on the left side. The pathology from the awake craniotomy for resection of the lesion showed infarcted tissue. This wa s surprising given the imaging findings at that time. His first followup MRI scan showed stability o f the lesion and the most recent CT scan suggests it continues to enlarge. An MRI is pending. Mr. Alvarez has a fairly dense right hemiparesis that is affecting his hand, his face, and his leg. Hi s speech function is good currently, but occasionally he does have some word finding difficulty. The left side is working well. My plan today is to get an MRI scan with and without contrast. This would give us more information w hether this could represent an infection in the site of the resection, tumor growth, or other patholo gy. The son is concerned that another surgery would set him back significantly and is considering do ing nothing other than hospice care. We will revisit that issue later this afternoon.
[2017-10-09] MEDS: Divalproex Sodium DR 500 MG TAB PO SCH ×2 (09:44→20:31)
[2017-10-09] MEDS: levETIRAcetam 500 MG TAB PO SCH ×2 (09:44→20:32)
[2017-10-09] MEDS: Heparin 5,000 UNITS/ML VIAL SC SCH ×4 (09:44→20:35)
[2017-10-09] MEDS: PROVENTIL INHALER 6.7 G (200 INHALATIONS) INH SCH ×2 (12:22→20:40)
--- NOTE | 2017-10-09 13:03 | PDOC.PN ---
- Subjective Encounter Start Date: 10/09/17 Encounter Start Time: 13:06 Subjective: no new complaints. No acute events overnight. Remained seizure free , - Objective MAR Reviewed: Yes Vital Signs & Weight: Vital Signs (12 hours) Temp Pulse Pulse Resp BP BP Pulse Ox 10/09/17 12:00 97.3 F L 66 18 121/57 L 97 10/09/17 08:37 73 134/64 10/09/17 08:00 98.2 F 69 18 116/60 95 Weight Admit Weight 123 lb 12.8 oz Weight 123 lb 4.8 oz I&O: 10/08/17 10/09/17 10/10/17 06:59 06:59 06:59 Intake Total 240 Output Total 250 Balance -10 Result Diagrams: 10/08/17 12:17 10/08/17 12:17 Phys Exam - Physical Examination Constitutional: NAD HEENT: PERRLA, moist MMs, sclera anicteric Neck: supple Respiratory: no wheezing, no rales, no rhonchi, clear to auscultation bilateral Cardiovascular: RRR, no significant murmur, no rub Gastrointestinal: soft, non-tender, no distention, positive bowel sounds Musculoskeletal: no edema Right hemiparesis. Psychiatric: normal affect, A&O x 3 Skin: no rash Dx/Plan (1) Seizures Code(s): R56.9 - UNSPECIFIED CONVULSIONS Status: Acute Plan: Continue depakote and Keppra. Lorazepam PRN for seizures. Comment: Stable. Seizure free since admission. (2) Brain tumor Code(s): D49.6 - NEOPLASM OF UNSPECIFIED BEHAVIOR OF BRAIN Status: Chronic Plan: Seen by neurosurgery for increasing tumor size with vasogenic edema. Continue depakote and Keppra. \Will f/u MRI brain. Comment: s/p resection 05/2017 (3) CVA (cerebral vascular accident) Code(s): I63.9 - CEREBRAL INFARCTION, UNSPECIFIED Status: Acute Qualifiers: CVA mechanism: unspecified Qualified Code(s): I63.9 - Cerebral infarction, unspecified Plan: Continue home regimen but hold ASA until MRI results. PT/OT Comment: Has significant residual hemiparesis. Continued on Statins; held until MRI brain. (4) Hypokalemia Code(s): E87.6 - HYPOKALEMIA Status: Resolved Comment: Pt refusing recheck - Plan * .
[2017-10-09] MEDS ORDERED: Gadobenate Dimeglumine 529 MG/1 ML (20ML VIAL) ONE (14:03)
--- NOTE | 2017-10-09 14:58 | MRI ---
MRI BRAIN WITH AND WITHOUT CONTRAST: DATE: 10/09/17 HISTORY: 87-year-old male status post resection of malignant brain tumor. Recent shows enlarging mass in the o perative bed. COMPARISON: MRI of 07/21/17. TECHNIQUE: Multiple sequences obtained in axial, sagittal, and coronal planes; pre and post IV injection of gado linium-based contrast agent: 11 mL. FINDINGS: Again noted are the left upper parietal craniotomy changes. Deep to the craniotomy site, the previous ly demonstrated, irregularly shaped, heterogeneously enhancing tumor mass in the left posterior upper frontal lobe precentral gyrus, which previously measured 2.1 x 2.8 x 2.8 cm, has now grown to curren t dimensions of approximately 4 x 3.5 x 5 cm, and causes greater degree of local mass effect, now inf eriorly displacing the body of the left lateral ventricle, and causes a new finding of minimal, 0.2 c m left to right midline shift of the septum pellucidum. No obstructive hydrocephalus. There is a sign ificantly larger region of vasogenic edema surrounding the recurrent tumor at the left vertex. No dis tant sites of tumor spread identified elsewhere in the brain. The previously demonstrated fluid collection just deep to the craniotomy site has essentially resolve d. 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 SAEED Liang POS: [facility]
--- NOTE | 2017-10-09 18:32 | PRG ---
DATE OF SERVICE: 10/09/2017 I saw Mr. Alvarez after his MRI scan this evening. His neurological examination is the same and contin ues to have simple partial seizures, mostly involving the face and neck. MRI scan looks as though the lesion which started in the motor strip is much larger than it was in No vember, it looks much larger than did in July. I think the chances of this represents infection are low. There is not a significant amount of restr icted diffusion to suggest abscess. Low grade indolent infection over time could possibly result in this scan, but it is unlikely. I think this is a primary brain tumor. As such, I have offered him t hree options. His option for no treatment is hospice care. The option that we reopen his craniotomy and await pathologist who were going to be taking his little tissue as possible. Once they have via ble tissue and enough to make a diagnosis, we stop craniotomy. Third option is an aggressive tumor s urgery where we debulk the entire abnormality. Mr. Alvarez will be n.p.o. after midnight as he decides. If he wants more time to decide, he could be kept in the hospital over the weekend on steroids. If there is a chance of operating next week, he w ants to proceed aggressively tomorrow we can make arrangements for that to happen. If he wants to tapia ve no treatment whatsoever, we can transfer to outpatient hospice care. I will follow up early in morning.
--- NOTE | 2017-10-09 20:13 | CON ---
DATE OF CONSULTATION: 10/09/2017. CONSULTING PHYSICIAN: Hospitalist Service. IMPRESSION: 1. Recurrent left parietal mass. 2. Persistent right hemiparesis. 3. Secondary seizures, which remain simple partial in appearance. PLAN: Add Keppra 500 mg twice a day and titrate as necessary. Mr. Alvarez is an 87-year-old man who started developing some right-sided weakness back in May. He initially ignored the symptoms and it steadily got worse. He subsequently had an MRI of the brain , which initially was thought to possibly represent a stroke. As repeat evaluations were undertaken, it was thought to be a mass. He underwent a craniotomy last year and had a resection of fairly larg e mass of tissue. The pathology came back infarcted tissue. The patient was not started on radiatio n therapy. He has been taking Depakote for his focal seizures on the right. He had repeat MRI of th e brain done today, which showed recurrent irregular enhancing mass in the left parietal lobe with no significant midline shift. There is peripheral edema around it. The patient is without any complai nts of headache, nausea, vomiting, or dizziness. PAST MEDICAL HISTORY: Otherwise unremarkable. FAMILY HISTORY: Noncontributory. ALLERGIES: TEMAZEPAM, TRAMADOL, TICAGRELOR. SOCIAL HISTORY: Unremarkable. MEDICATIONS: Medication list was reviewed. REVIEW OF SYSTEMS: Otherwise unremarkable. PHYSICAL EXAMINATION: VITAL SIGNS: Blood pressure 136/59, pulse 62, respirations 16, temperature 96.9. HEENT: Pupils are equal and reactive. Conjunctivae are clear. There is a knot on the right side of his head protruding up about 1 cm. NECK: Supple. EXTREMITIES: No cyanosis. NEUROLOGIC: He is alert and appropriate. He has some mild word-finding difficulty. His speech is o therwise clear. Cranial nerve exam seemed to be intact. Motor exam showed a dense right upper extre mity more so than right leg weakness. Sensation was intact. Gait was not tested. No abnormal movem ents were seen. MRI images were reviewed. 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 He has been having some simple partial seizures throughout the day. We will see if Keppra parra s a better job.
[2017-10-09] MEDS ORDERED: Non-Formulary Item 1 EACH (Atorvastatin Calcium [Lipitor] 80 MG) PO SCH (21:00)
[2017-10-09] MEDS ORDERED: Atorvastatin Calcium 40 MG TAB PO SCH (21:00)
[2017-10-10] MEDS: PROVENTIL INHALER 6.7 G (200 INHALATIONS) INH SCH (07:00)
--- NOTE | 2017-10-10 07:36 | PRG ---
DATE OF SERVICE: 10/10/2017 I stopped by and saw Mr. Alvarez in his hospital room this morning. Overnight, his vitals remained sta ble. He is refusing blood draws. This morning, Mr. Alvarez is awake. He is answering questions. He is appropriate in his speech. He still has focal motor seizures. I spent some time talking to his son both in the room and outside the room. They had a number of que stions about his father's care. He requested me to get in touch with their family friend, Dr. Tanner bridges, a cardiology physician, at [facility] in [place], and I will call him later this morning. The family is leaning towards doing nothing. They have not made up their mind definitively, but if t his is how the decision stays, then we will need social work to look at community resources, home brian sing, hospice, and some help for the family. The dysphasia will complicate his care in the coming we eks to months and then a decreased level of consciousness.
[2017-10-10] MEDS ORDERED: Mirtazapine 30 MG TAB PO SCH (09:00)
[2017-10-10] MEDS ORDERED: Finasteride 5 MG TAB PO SCH (09:00)
[2017-10-10] MEDS ORDERED: Gabapentin 300 MG CAP PO SCH (09:00)
[2017-10-10] MEDS ORDERED: Clopidogrel Bisulfate 75 MG TAB PO SCH (09:00)
[2017-10-10] MEDS ORDERED: Potassium Chloride 20 MEQ TAB PO SCH (09:00)
[2017-10-10] MEDS ORDERED: Tamsulosin HCl 0.4 MG CAP PO SCH (09:00)
[2017-10-10] MEDS ORDERED: FLU VACC TS2017-18 (>65YR) 0.5 ML SYRINGE IM ONE (09:00)
[2017-10-10] MEDS ORDERED: Magnesium Oxide 400 MG TAB PO SCH (09:00)
[2017-10-10] MEDS: Heparin 5,000 UNITS/ML VIAL SC SCH ×2 (09:07→14:22)
[2017-10-10] MEDS: Divalproex Sodium DR 500 MG TAB PO SCH (09:08)
[2017-10-10] MEDS: levETIRAcetam 500 MG TAB PO SCH (09:09)
[2017-10-10 12:56] VITALS: BP 134/64; TEMP 97.3
[2017-10-10 13:38] LABS: #Basophils 0.1 thou/uL (0.0-0.2); #Eosinphils 0.1 thou/uL (0.0-0.7); #Monocytes 0.8 thou/uL (0.11-0.59); #Neutrophils 5.2 thou/uL (1.40-6.50); %Basophils 0.7 % (0.0-1.0); %Eosinophils 0.7 % (0.0-10.0); %Lymphocytes 24.2 % (21.0-51.0); %Neutrophils 64.3 % (42.0-75.0); Hemoglobin 12.1 g/dL (14.0-18.0); Mean Corpuscular HGB CONC 32.3 g/dL (32.0-36.0); Mean Corpuscular Hemoglobin 30.6 pg (27.0-31.0); Mean Corpuscular Volume 94.5 fl (80.0-94.0); Platelet Count 403 thou/uL (130-400); RBC Distribution Width 13.5 % (11.5-14.5); Red Blood Cell (RBC) Count 3.97 mill/uL (4.70-6.10); White Blood Cell (WBC) Count 8.1 thou/uL (4.8-10.8)
[2017-10-10 13:54] LABS: Anion Gap 10 mmol/L (10-20); BUN (Urea Nitrogen) 12 mg/dL (8.4-25.7); Calc. Creatinine Clearance 62 mL/min (70-130); Calcium 8.9 mg/dL (7.8-10.44); Carbon Dioxide 27 mmol/L (23-31); Chloride 105 mmol/L (98-107); Estimated GFR-MDRD Greater than 90; Glucose 90 mg/dL (83-110); Potassium 4.3 mmol/L (3.5-5.1); Sodium 138 mmol/L (136-145)
--- NOTE | 2017-10-10 17:13 | CON ---
DATE OF CONSULTATION: 10/10/2017 REASON FOR CONSULTATION: Mr. 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 I was asked to see him to discuss his options for treatment with radiation. HISTORY OF PRESENT ILLNESS: Mr. Damon's history is quite extensive. He apparently underwent a card iac catheterization and had stents placed. After his stent placement, he noticed some difficulty wit h several of his fingers in his right hand. He ultimately had an MRI of the brain, which suggested a contrast enhancing lesion in the motor strip of the left side of the brain. This was felt to possib ly be a stroke. This was followed with another MRI, which showed that the lesion had actually increa sed in size. Concern was for a tumor. He was seen by Dr. Rowe and on 06/05/2017, underwent an awake craniotomy with biopsy and resection from the left parietal area. The pathology ultimately was reviewed at the [facility]. There was felt to be extensive necrosis with relatively small portions of viable, hypercellular brain parenchyma. No definite glioma could be diagnosed. There is no evid ence of fungus or toxoplasma or metastatic carcinoma or lymphoma identified. Therefore, thought the lesion might be a stroke. In July, he underwent a repeat MRI and again the lesion was slightly l arger. More recently, he has had continued decline with continued progressive loss of function on th e right side of his body. He had a fall in the fpc/rehabilitation which he states was going poorly in terms of improving his function. He was admitted to the hospital for workup and evaluatio n. A repeat MRI of the brain was performed, which suggested that the lesion had grown in size and no w measured 4 x 3.5 x 5 cm where previously it measured 2.8 cm in greatest dimension. There was some mass effect with vasogenic edema. There was no distant sites of tumor spread. 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 He saw Dr. Rowe who did not recommend further surgery. Dr. Rowe asked me to see the patient to decide whether he might benefit from empiric radiation therapy. Presently, he denies any headaches. He admits to having a little puncture on his right side. He is unable to walk or get out of bed. He has no nausea or vomiting. He has had some hoarseness in the past several weeks. He has no difficulty with swallowing. He voices no other com plaints. PAST MEDICAL HISTORY: 1. Coronary artery disease, status post stent placement. 2. Status post bypass surgery in 1996. 3. Status post back surgery in 2008. MEDICATIONS: Plavix, Depakote, Proscar, Neurontin, Keppra, Protonix, and Flomax. ALLERGIES: TEMAZEPAM, TICAGRELOR, and TRAMADOL. SOCIAL HISTORY: He has not smoked for more than 30 years. He has no alcohol use at the present time . He was residing in [place] in a fpc doing rehabilitation prior to this admission. He is . His daughter is with him in the room at the present. FAMILY HISTORY: Negative for brain tumor. REVIEW OF SYSTEMS: Twelve system review of systems is otherwise negative. PHYSICAL EXAMINATION: VITAL SIGNS: His height is 5 feet 7 inches, weight is 123 pounds, his blood pressure is 134/64, puls e is 63, respirations are 18, temperature 97.3, and O2 saturation is 98%. GENERAL: He is alert and oriented, but confined to the bed. Karnofsky performance status is 70%. HEENT: Eyes, pupils equal, round, and reactive to light. Extraocular movements are intact. ENT: O ral cavity and oropharynx normal without lesion or erythema. Palate elevates symmetrically. Gingiva is intact. NECK: Supple, without cervical or supraclavicular adenopathy. No thyromegaly. Larynx is midline. LUNGS: Breathing nonlabored. Clear to auscultation. HEART: Regular rate and rhythm with a 2/6 systolic murmur. ABDOMEN: There is no lower extremity edema. LYMPHATIC: No axillary or inguinal adenopathy. ABDOMEN: Bowel sounds present. Soft, nontender, nondistended, without mass or hepatosplenomegaly. Liver percusses to a normal size. SKIN: Skin is without rash or purpura. NEUROLOGIC: Cranial nerves II-XII grossly intact. Motor strength is 5/5 in both upper and lower ext remities on the left side in all muscle groups tested. On the right side, he has no brake holder strength. He has 3/5 strength in his biceps muscle. Leg strength in all muscle groups is 1-2/5. He is unable to lift his right leg off the bed. Her reflexes are brisk but symmetrical. Gait was unable to be te sted. RADIOLOGIC DATA: I have reviewed all of his MRIs. I agree that this has the appearance of a primary brain tumor. This has progressively enlarged in size. LABORATORY DATA: Pathology from his biopsy showed only necrosis in May. CBC revealed a white blood count of 8100 with hemoglobin of 12.1, hematocrit of 37.5, and platelet count of 403,000. Chem istry group showed normal electrolytes. His creatinine was 0.68. ASSESSMENT: Mr. Alvarez is an 87-year-old gentleman with a poor performance status, who likely has a p rimary brain tumor. It would be suspected in his age group and by the appearance on MRI that this is a glioblastoma. However, tissue diagnosis was not able to be obtained despite open biopsy. Only ne crotic cells were identified. He has had progression with progressive loss of function on the right side, progressive decrease in performance status such that he is now basically nearly paralyzed on th e right side and bedridden. PLAN: I had a long discussion with Mr. Alvarez and his daughter regarding his situation and diagnosis. I explained that this is likely a primary brain tumor and likely an aggressive primary brain tumor such as a glioblastoma. I think the likelihood of this being in a glioblastoma is quite high. Howev er, it could be an infection or some other demyelinating process, but this is felt to be much less li alycia. No infection was identified at the time of his craniotomy. I have seen a demyelinating proces s mimicking a glioblastoma, but this is extremely rare. Therefore, the likelihood is that this is a primary brain tumor. We then discussed the option of empiric radiation, which is what I was asked to see the patient about. Given his age and present performance status, I do not think he would benefi t from empiric radiation therapy. I did discuss that sometimes we do empiric radiation therapy, alth ough this is rare. It is always much preferable to have tissue diagnosis. However, I do not think e mpiric radiation therapy would likely provide any benefit in terms of recovery of his function and im provement in survival. I think his survival is likely to be quite short with or without radiation th era and very unlikely to be extended or improved in any meaningful way with radiation therapy. Ad ditionally, it would be a hardship on the patient to be able to come for radiation therapy since he l poli in [place] and is confined to the bed. The logistics of radiation as well as the benefits and r isks of treatment were discussed. We discussed potential side effects which would include but will n ot be limited to skin reaction, hair loss, headache, nausea, vomiting, decreased blood counts, fatigu e, and possible damage to the normal brain. Time was taken to answer all their questions. They are quite comfortable with my recommendation for no radiation therapy. They are quite comfortable with t he recommendation for hospice care. They are going to make arrangements for hospice care and he is jessika gillespie to be discharged likely later today to go back to the fpc in [place]. I left my card a nd they are to contact me should they have further questions about radiation therapy.
--- NOTE | 2017-10-10 22:11 | DIS ---
DATE OF ADMISSION: 10/08/2017 DATE OF DISCHARGE: 10/10/2017 CONDITION AT TIME OF DISCHARGE: Fair/guarded. DISCHARGE DIAGNOSES: Seizures and brain tumor. SECONDARY DIAGNOSES: History of cerebrovascular accident, hypokalemia, hypertension, coronary artery disease, benign prostatic hypertrophy and history of craniotomy in 05/2017. CONSULTATIONS: Neurosurgery. PROCEDURES PERFORMED: MRI brain, which showed interval further growth of the malignant primary neopl astic brain tumor at the left upper cerebrum, which creates a local mass effect and a greater surroun ding vasogenic edema. CT brain; enlarging heterogenous left frontal mass with surrounding vasogenic edema. No hemorrhage is evident. DISCHARGE MEDICATIONS: Acetaminophen 650 mg p.o. q.4 hours p.r.n. for pain, albuterol sulfate HFA 2 puffs inhaled q.i.d., aspirin 81 mg p.o. daily, atorvastatin 80 mg p.o. at bedtime, cholecalciferol 5 000 units p.o. daily, clopidogrel 75 mg p.o. daily, divalproex sodium 500 mg p.o. b.i.d., finasteride 5 mg p.o. daily, gabapentin 300 mg p.o. b.i.d., levetiracetam 500 mg p.o. b.i.d., loratadine 10 mg p .o. daily, magnesium oxide 400 mg p.o. daily, mirtazapine 45 mg p.o. b.i.d., nitrofurantoin 100 mg p. o. daily, pantoprazole 40 mg p.o. q.a.m., potassium chloride 20 mEq p.o. daily and tamsulosin 0.4 mg p.o. b.i.d. HISTORY OF PRESENT ILLNESS: An 87-year-old male with history of CVA, hyperlipidemia, hypertension, C AD status post stents, presented to the emergency room after a seizure episode resulted in a fall. [facility] had a history of brain tumor and had craniotomy in 2017 after frontal lobe mass was diagnosed by trish sheppard. He reports difficulty ambulating in the past few days and has had twitching episodes of his [place], which started 2 days before presentation that lasted for a few seconds and resolving spontaneous ly. There were no tonic clonic seizures or loss of consciousness. He reported 1 episode of bowel in continence. No history of fevers or chills. No chest pain, no shortness of breath. There were no o ther symptoms. PAST MEDICAL HISTORY: As above. PAST SURGICAL HISTORY: Back surgery in 2008. HOSPITAL COURSE: He had an MRI and CT brain as above. He was evaluated by Neurosurgery who presente d the patient and his family with a variety of options including surgical intervention; however, john lawrence decided against any surgical intervention and decided that the patient will be taken home on [facility] [employer]. survey project manager was consulted and this is being arranged for the patient. He remained stab le otherwise and well oriented throughout his stay in hospital. PHYSICAL EXAMINATION: The patient was examined and on the day of discharge. VITAL SIGNS: Stable CONSTITUTIONAL: Not in acute distress. HEENT: Contusion on the right frontal area. PERRLA. Moist mucous membranes. Sclerae nonicteric. Normocephalic. NECK: Supple. Normal range of movement. RESPIRATORY: No wheezing, rales or rhonchi. LUNGS: Clear to auscultation bilaterally. CARDIOVASCULAR: Regular rate and rhythm with no significant murmurs or rubs. GASTROINTESTINAL: Soft and nontender. No distention. Positive bowel sounds. MUSCULOSKELETAL: No edema. NEUROLOGIC: Residual right hemiparesis. Strength 1/5 in the upper and lower right extremities. PSYCHIATRIC: Normal affect, alert and well oriented. SKIN: No rashes or lesions. DIET: Heart healthy diet with Ensure supplements twice a day. LABS ON DISCHARGE: CBC, CMP and white count are remarkable at discharge. ACTIVITY: Restrictions to resume activities as tolerated by the patient to undergo continued physica l and occupational therapy at home. CARE GOALS: The patient encouraged to take his medications as prescribed. Discharge plan discussed with the patient's son and agreed with current plan. Total time spent discharging including chart review and documentation about 65 minutes.
--- NOTE | 2017-10-18 13:18 | EKG ---
Test Reason : Blood Pressure : / mmHG Vent. Rate : 078 BPM Atrial Rate : 078 BPM P-R Int : 164 ms QRS Dur : 150 ms QT Int : 440 ms P-R-T Axes : 038 010 177 degrees QTc Int : 501 ms Normal sinus rhythm Possible Left atrial enlargement Left bundle branch block Abnormal ECG Confirmed by JAIRO CADENA, SWETHA ([id number]), legal editor SETH KUMAR ([id number]) on 10/18/2017 1:18:00 PM Referred By: Confirmed By:SWETHA GILL MD
== END 2017-10-10 16:38 | disposition hospice, home (50) | DRG 54 ==
LOC: ERS 11:52 → 2SE 18:48
PROVIDERS: ADMIT Internal Medicine; ATTEND Internal Medicine
DX: C71.0 Malignant neoplasm of cerebrum, except lobes and ventricles (principal); G93.6 Cerebral edema; I63.9 Cerebral infarction, unspecified; I69.351 Hemiplegia and hemiparesis following cerebral infarction affecting right dominant side; G40.109 Localization-related (focal) (partial) symptomatic epilepsy and epileptic syndromes with simple partial seizures, not intractable, without status epilepticus; E87.6 Hypokalemia; I10 Essential (primary) hypertension; I25.10 Atherosclerotic heart disease of native coronary artery without angina pectoris; N40.0 Benign prostatic hyperplasia without lower urinary tract symptoms; Z95.1 Presence of aortocoronary bypass graft; Z95.5 Presence of coronary angioplasty implant and graft; Z87.891 Personal history of nicotine dependence; R47.02 Dysphasia
CPT/HCPCS: 36415; 70450; 70553; 71045; 80048; 80053; 82553; 84146; 84443; 84484; 85025; 85379; 85652; 86140; 93005; 94664; 96374; A4216; A9579; G8978-GP-CM; G8979-GP-CK; G8987-GO-CL; G8988-GO-CJ; J1100; J1644